=== PATIENT | female | born 1935 | race African-American/Black ===

== ENCOUNTER 2019-06-12 15:31 | Emergency (ER) | payer OTHER ==
[~2019-06-12] VITALS: Ht 165.1 cm; Wt 64.0 kg
[2019-06-12] MEDS ORDERED: IBUPROFEN 600MG TABLET PO ONE (18:30)
[2019-06-12] MEDS ORDERED: CLONIDINE 0.1MG TABLET PO ONE (18:30)
[2019-06-12 19:01] VITALS: BP 189/89
== END 2019-06-12 19:05 | disposition home or self-care (01) ==
LOC: ER 15:31
DX: M54.2 Cervicalgia (principal); I10 Essential (primary) hypertension; F41.9 Anxiety disorder, unspecified; V43.62XA Car passenger injured in collision with other type car in traffic accident, initial encounter; Y93.89 Activity, other specified; Y92.488 Other paved roadways as the place of occurrence of the external cause
CPT/HCPCS: 99283